=== PATIENT | female | born 1950 | race Caucasian/White ===

== ENCOUNTER 2017-10-05 08:28 | Observation (INO) | payer OTHER ==
[~2017-10-05] VITALS: Ht 160 cm; Wt 101.6 kg
[~2017-10-05 08:28] MED LIST: ALPR0.5T99 PO; HYDR-2768 PO; LISI-363 PO; LORTA5 PO; LOVA1TAB47 PO; ZOFR4TAB3 SL
[2017-10-05] MEDS ORDERED: ALPR.5 PO (09:22)
[2017-10-05] MEDS ORDERED: HYDR25TA5 PO (09:22)
[2017-10-05] MEDS ORDERED: HYDR-3516 PO (09:23)
[2017-10-05] MEDS ORDERED: LISI-515 PO (09:24)
[2017-10-05] MEDS ORDERED: LOVA20TA PO (09:24)
[2017-10-05] MEDS ORDERED: ZOFR4TAB PO (09:25)
[2017-10-05] MEDS ORDERED: PANT40TA3 PO (09:29)
[2017-10-05] MEDS ORDERED: TRAM50TA PO (09:29)
[2017-10-05] MEDS ORDERED: GABA300C5 PO (09:29)
[2017-10-05] MEDS ORDERED: LOSA100T2 PO (09:29)
[2017-10-05] MEDS ORDERED: CLON0.1T PO (09:29)
[2017-10-05] MEDS ORDERED: BACL10TA PO (09:29)
[2017-10-05] MEDS ORDERED: ceFAZolin 2 GM PREMIX 50 ML IV SCH (09:30)
[2017-10-05] MEDS ORDERED: LACTATED RINGER'S 1000 ML IV PRN (09:30)
[2017-10-05] MEDS ORDERED: SODIUM CHLORID 0.9% 500 ML IV PRN (09:30)
[2017-10-05] MEDS ORDERED: CHLORHEXIDINE GLUCONATE 2 % 1 PACK (2 CLOTHS) TOPICAL PRN (09:30)
[2017-10-05] MEDS ORDERED: POVIDONE IODINE 5% (ANTISEPSIS KIT) 4 APPLICATIONS EACH NARE PRN (09:30)
[2017-10-05] MEDS ORDERED: METOPROLOL TARTRATE 25 MG TAB PO PRN (09:30)
[2017-10-05] MEDS ORDERED: HEPARIN SODIUM - SQ 10,000 UNITS/ML VIAL SQ SCH (09:30)
--- NOTE | 2017-10-05 09:37 | RADRPT ---
EXAM DATE/TIME: 10/05/2017 09:01 [place] COMPARISON: No previous studies available for comparison. INDICATIONS : Evaluate for pneumonia, pneumothorax or communible disease Abdomen surgery MEDICAL HISTORY : None. SURGICAL HISTORY : None. ENCOUNTER: Initial ACUITY: 1 day PAIN SCORE: 0/10 LOCATION: Bilateral chest FINDINGS: Minimal linear plaque opacity at the left lung base. Cardiomediastinal contours are within normal bunch its. Bony thorax is intact. CONCLUSION: 1. Minimal left lung base atelectasis. Moshe Arias MD on October 05, 2017 at 9:34 Board Certified Radiologist. This report was verified electronically.
[2017-10-05 10:15] LABS: AUTOMATED NEUTROPHIL # 2.7 TH/MM3 (1.8-7.7); BASOPHIL # 0.1 TH/MM3 (0-0.2); BASOPHIL % 1.3 % (0.0-2.0); EOSINOPHIL # 0.1 TH/MM3 (0-0.4); EOSINOPHIL % 2.6 % (0.0-4.0); HEMATOCRIT 35.8 % (35.0-46.0); HEMOGLOBIN 11.8 GM/DL (11.6-15.3); LYMPH % 31.4 % (9.0-44.0); LYMPHOCYTE # 1.5 TH/MM3 (1.0-4.8); MEAN CELL VOLUME 89.1 FL (80.0-100.0); MEAN CORPUSCULAR HEMOGLOBIN 29.5 PG (27.0-34.0); MEAN PLATELET VOLUME 9.4 FL (7.0-11.0); MONO % 6.6 % (0.0-8.0); MONOCYTE # 0.3 TH/MM3 (0-0.9); NEUT % 58.1 % (16.0-70.0); PLATELET COUNT 163 TH/MM3 (150-450); RED BLOOD COUNT 4.02 MIL/MM3 (4.00-5.30); RED CELL DISTRIBUTION WIDTH 13.5 % (11.6-17.2); WHITE BLOOD COUNT 4.7 TH/MM3 (4.0-11.0)
[2017-10-05 10:22] LABS: INTERNATIONAL NORMALIZED RATIO 1.1 RATIO; PROTHROMBIN TIME - PATIENT 10.8 SEC (9.8-11.6)
[2017-10-05 10:27] LABS: ALBUMIN 3.4 GM/DL (3.4-5.0); ALT (GPT) 22 U/L (10-53); AST (GOT) 20 U/L (15-37); BLOOD UREA NITROGEN 16 MG/DL (7-18); CALCIUM 8.7 MG/DL (8.5-10.1); CHLORIDE 103 MEQ/L (98-107); CREATININE 1.17 MG/DL (0.50-1.00); GLOMERULAR FILTRATION RATE 46 ML/MIN (>89); GLUCOSE,RANDOM 116 MG/DL (74-106); SODIUM (NA) 141 MEQ/L (136-145)
[2017-10-05 10:29] LABS: ALKALINE PHOSPHATASE 94 U/L (45-117); TOTAL BILIRUBIN ADULT 0.7 MG/DL (0.2-1.0)
[2017-10-05] MEDS ORDERED: ACETAMINOPHEN 1000 MG/100 ML 100 ML IV ONE (10:54)
[2017-10-05] MEDS ORDERED: ARTIFICIAL TEARS OPTH OINT 3.5 APPLIC/3.5 GM TUBO ONE (10:54)
[2017-10-05] MEDS ORDERED: SUGAMMADEX SODIUM 200 MG/2 ML VIAL IV PUSH ONE (10:56)
[2017-10-05] MEDS ORDERED: FAMOTIDINE 20 MG/2 ML VIAL ONE (11:12)
[2017-10-05] MEDS ORDERED: BUPIVACAINE/EPINEPHRINE 0.75% PF 30 ML VIAL INFIL ONE (13:29)
[2017-10-05] MEDS ORDERED: METHYLENE BLUE 10 MG/ML VIAL OTHER ONE (14:16)
[2017-10-05] MEDS ORDERED: SODIUM CHLORIDE 0.9% FLUSH 10 ML FLUSH IV FLUSH PRN (15:15)
[2017-10-05] MEDS ORDERED: diphenhydrAMINE HCL 25 MG CAP PO PRN (15:15)
[2017-10-05] MEDS ORDERED: DO NOT ADM ANY ANTICOAGULANT DRUGS PRN (15:26)
[2017-10-05] MEDS ORDERED: MIDAZOLAM HCL 2 MG/2 ML VIAL ONE (15:36)
[2017-10-05] MEDS: KETOROLAC TROMETHAMINE 30 MG/ML (IVP) VIAL IVP SCH ×2 (16:00→22:29)
[2017-10-05] MEDS: D5-1/2 NS + KCL 20 MEQ INJ 1,000 ML IV SCH (16:30)
[2017-10-05] MEDS ORDERED: *morphine SULFATE 8 MG/ML PERIprocedure ONLY ONE (16:45)
[2017-10-05] MEDS ORDERED: *HYDROmorphone PF 1 MG VIAL PERIprocedural Use ONLY ONE ×2 (17:06→17:30)
[2017-10-05] MEDS: oxyCODONE/ACETAMINOPHEN 5 MG/325 MG TAB PO PRN ×2 (17:34→22:36)
[2017-10-05] MEDS: GABAPENTIN 300 MG CAP PO SCH (18:45)
[2017-10-05] MEDS: BACLOFEN 10 MG TAB PO SCH (18:45)
[2017-10-05 20:35] VITALS: BP 103/62; PULSE 68; RESP 16; TEMP 97.6; O2SAT 95
[2017-10-05] MEDS: SODIUM CHLORIDE 0.9% FLUSH 10 ML FLUSH IV FLUSH SCH (20:56)
--- NOTE | 2017-10-05 20:56 | EKG ---
Date Performed: 10/05/2017 Time Performed: 09:16:11 PTAGE: 67 years EKG: SINUS BRADYCARDIA BORDERLINE ECG SINCE PRIOR TRACING NO SIGNIFICANT CHANGE PREVIOUS TRACING : 09/21/2011 14.19 DOCTOR: Shnata Villalobos Interpretating Date/Time 10/05/2017 20:54:48
[2017-10-05] MEDS: cloNIDine HCL 0.1 MG TAB PO SCH (20:57)
[2017-10-05 22:32] VITALS: O2SAT 96
[2017-10-05 22:33] VITALS: BP 116/53
[2017-10-06] VITALS (7 sets, daily range): BP systolic 95–106; BP diastolic 48–59; PULSE 51–86; RESP 16–20; TEMP 96.9–99.2; O2SAT 91–95
[2017-10-06] MEDS: D5-1/2 NS + KCL 20 MEQ INJ 1,000 ML IV SCH ×3 (02:38→22:00)
[2017-10-06] MEDS: KETOROLAC TROMETHAMINE 30 MG/ML (IVP) VIAL IVP SCH ×2 (04:33→10:14)
[2017-10-06 05:56] LABS: AUTOMATED NEUTROPHIL # 9.8 TH/MM3 (1.8-7.7); BASOPHIL % 0.2 % (0.0-2.0); HEMATOCRIT 32.4 % (35.0-46.0); HEMOGLOBIN 11.1 GM/DL (11.6-15.3); LYMPH % 8.4 % (9.0-44.0); MEAN CELL VOLUME 87.6 FL (80.0-100.0); MEAN CORPUSCULAR HEMOGLOBIN 30.1 PG (27.0-34.0); MEAN CORPUSCULAR HGB CONC 34.4 % (32.0-36.0); MEAN PLATELET VOLUME 9.8 FL (7.0-11.0); MONO % 4.9 % (0.0-8.0); MONOCYTE # 0.6 TH/MM3 (0-0.9); NEUT % 86.5 % (16.0-70.0); PLATELET COUNT 182 TH/MM3 (150-450); RED CELL DISTRIBUTION WIDTH 13.1 % (11.6-17.2); WHITE BLOOD COUNT 11.3 TH/MM3 (4.0-11.0)
[2017-10-06] MEDS: oxyCODONE/ACETAMINOPHEN 5 MG/325 MG TAB PO PRN ×2 (05:56→10:14)
[2017-10-06 06:24] LABS: BICARBONATE 28.5 MEQ/L (21.0-32.0); CALCIUM 8.4 MG/DL (8.5-10.1); CREATININE 1.43 MG/DL (0.50-1.00)
[2017-10-06] MEDS ORDERED: TRAM50TA PO (06:35)
[2017-10-06] MEDS: HYDROCHLOROTHIAZIDE 25 MG TAB PO SCH (09:00)
[2017-10-06] MEDS: cloNIDine HCL 0.1 MG TAB PO SCH ×2 (09:00→20:42)
[2017-10-06] MEDS: SODIUM CHLORIDE 0.9% FLUSH 10 ML FLUSH IV FLUSH SCH ×2 (09:00→20:42)
[2017-10-06] MEDS ORDERED: NON-FORMULARY DRUG (Losartan-Hydrochlorothiazide 1 TAB) PO SCH (09:00)
[2017-10-06] MEDS: LOSARTAN 50 MG TAB PO SCH (09:00)
[2017-10-06] MEDS: PANTOPRAZOLE SOD 40 MG DELAYED RELEASE TAB PO SCH (10:14)
[2017-10-06] MEDS: PRAVASTATIN SOD 20 MG TAB PO SCH (10:14)
[2017-10-06] MEDS: GABAPENTIN 300 MG CAP PO SCH ×3 (10:15→20:44)
[2017-10-06] MEDS: BACLOFEN 10 MG TAB PO SCH ×3 (10:15→17:11)
[2017-10-06] MEDS: ONDANSETRON HCL 4 MG/2 ML VIAL IVP PRN ×3 (10:20→19:47)
--- NOTE | 2017-10-06 12:55 | MP ---
cc: MAHSA FONTENOT MD, JULIE D. MD PATEL, KASHYAP M.D. DATE OF SURGERY 10/05/2017 PREOPERATIVE DIAGNOSIS Endometrial polyps with complex atypical hyperplasia. POSTOPERATIVE DIAGNOSIS Endometrial polyps with complex atypical hyperplasia. Intraperitoneal and intrapelvic adhesions. PROCEDURE Robotic-assisted laparoscopic hysterectomy, bilateral salpingo-oophorectomy, extensive lysis of abdominal and pelvic adhesions. SURGEON Mahsa Fontenot. 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 ANESTHESIA General endotracheal. ESTIMATED BLOOD LOSS 100 cc. IV FLUIDS 1000 cc. URINE OUTPUT 200 cc. HISTORY A 67-year-old female who in part of her evaluation for some pelvic pain and urinary symptomatology had a pelvic ultrasound which showed a thickening to the endometrium. She underwent a hysteroscopy and D&C where there are polypoid growths, especially one prominent polyp in the endometrium. The remainder of the endometrium appeared atrophic. This polyp was removed. This polyp showed complex atypical hyperplasia. She was seen in our office and counseled regarding the potential precancerous nature of complex atypical hyperplasia and often the coexistence of endometrial cancer. We discussed options ranging from clinical follow-up to progesterones to more definitive surgery with hysterectomy. Initially she was apprehensive about surgery and requested more time to think about her options. Shortly thereafter she contacted our office and stated that she was worried about the possibility of cancer being present or cancer developing, and although she was apprehensive about surgery she was more apprehensive about the possibility of cancer and wanted to move forward with surgery. She has been counseled by my office staff in addition to myself and she is seen again in the pre-op holding area accompanied by her . I again reviewed the findings in her case to date, the plan for hysterectomy to remove uterus, cervix, tubes and ovaries, our goal to accomplish the surgery laparoscopically robotically and the potential need to convert to laparotomy. We also discussed the potential need for staging biopsies if cancer is present with high risk factors and there is concern about possible microscopic metastatic disease. The pros, cons, risks and benefits of surgery, anesthesia and staging steps were discussed. She expressed good understanding and agreed to move forward. FINDINGS On vaginal exam there is a very narrow stricture in an arc-line fashion across the proximal ventral vagina. There is scarring there suggestive of possibly a transvaginal repair procedure of some type or possibly old obstetric injury. When we obtained her history from her in the office we were not made aware of a vaginal procedure. Nevertheless this is noted on exam but otherwise the vaginal mucosa appears smooth, it just makes for a narrow vaginal outlet. A well-supported cervix grossly appears normal. In the abdomen the omentum is adherent to the central and left lateral abdominal wall pain consistent with probable prior cholecystectomy, appendectomy procedures. In the pelvis both adnexa are densely adherent to the pelvic sidewall, partially retroperitonealized. The colon is overlying the left adnexa such that the adnexa is scarred between the colon and sidewall and there is some obliteration of the posterior cul-de-sac. In the peritoneum there is no obvious peritoneal implant. The liver and diaphragm edges are smooth. The omentum, large and small bowel are without implants. There are some diverticula noted without active diverticulitis. The uterus once removed showed no overt evidence of invasive disease. There is some abnormality that may meet the criteria for atypical hyperplasia. There is no obvious malignancy, certainly no invasion on preliminary inspection. STATEMENT OF COMPLEXITY/MODIFIER An estimated additional 45-60 minutes of the surgical case were required lysing adhesions, both to reduce the abdominal adhesions to gain safe entry into the peritoneal cavity and immobilize pelvic adhesions to restore normal anatomy to gain access to the pelvis and accomplish surgical objectives. Modifier should be applied accordingly. Additionally, her body habitus with a body mass index of 40.5. DETAILS OF PROCEDURE She was taken to the operating room, placed in the dorsal lithotomy position. After general endotracheal anesthesia was administered a timeout was undertaken. She was identified by hospital ID bracelet and sight recognition and the proposed procedure was reviewed and confirmed. She was carefully positioned in padded Rajan stirrups. Her arms were padded and secured to the sides. She was further secured to the operating table with eggcrate padding and tape in across chest over the shoulder fashion. All sites were noted to be properly aligned with no malalignments or pressure points. She was prepped and draped in sterile fashion, placed in lithotomy position. Pelvic exam was performed with findings as described above. The cervix was grasped, uterine cavity was sounded, cervix dilated and a small VCare manipulator was all that could be placed in the vagina through the narrow opening but placed without significant difficulty. A Garcia catheter was placed in the bladder. She was returned to low lithotomy position. A change of sterile gloves was undertaken and we completed draping in anticipation of laparoscopy. After confirming that an orogastric tube was in the stomach on suction a 5 mm cannula was placed in the left upper quadrant. With elevation of the abdominal wall and direct laparoscopic visualization carbon dioxide gas was insufflated. There was no safe entry in the mid abdomen due to the adhesions so an 8 mm cannula was placed in the left lateral abdomen and adhesions were taken down with sharp dissection, blunt dissection and focal point cautery to remove the omentum from the anterior abdominal wall. At this point a 12 mm cannula was placed in the midline above the umbilicus, an 8 mm cannula was placed in the right upper quadrant, and the original 5 exchanged for an 8 mm cannula. She was placed in Trendelenburg position. Peritoneal washings were obtained for cytology. The anatomy was explored with findings as described above. Three Ray-Frederick sponges were placed around the root of the small bowel mesentery after the small bowel was folded back on its mesenteric root. The robotic system was brought into the operative field and attached in the usual fashion. Monopolar scissors, fenestrated bipolar forceps and ProGrasp manipulators were placed in arms #1, 2 and 3 respectively and I took my place at the surgeon's console. Additional adhesions were taken down to free the adnexa from its attachments to the right pelvic sidewall and the posterior cul-de-sac and to mobilize the bowel and mesentery away from the sidewall. The right round ligament was isolated, cauterized and transected. The anterior and posterior leafs of the broad ligament were opened. The right ureter was identified. The right infundibulopelvic ligament was isolated as the intervening peritoneum was opened close to the uterus under the right utero-ovarian ligament. Dissection was carried proximally to isolate the gonadal vessels above the pelvic brim. The right infundibulopelvic ligament was then cauterized and transected. The posterior peritoneum was opened along the right side of the uterus and cervix as additional adhesions were taken down to open the posterior cul-de-sac and the right vesicouterine peritoneum was dissected off the lower uterine segment and cervix. The right uterine vessels were skeletonized and cauterized. Attention was directed toward the left side where retroperitoneal dissection was necessary to mobilize the colon. Sharp dissection was used to free the colon from its attachments to the left pelvic sidewall and the adnexal structures and to free adhesions from the cul-de-sac until the retroperitoneal anatomy could be better identified. The left round ligament was isolated, cauterized and transected and the left ureter was identified. The left infundibulopelvic limb was isolated. An opening was made in the peritoneum in close proximity to the uterus below the utero-ovarian ligament. Dissection was continued proximally elevating the gonadal vessels and dissected the infundibulopelvic ligament free above the level of the pelvic brim where it was cauterized and transected. The posterior peritoneum was opened along the left side of the uterus and cervix. The left vesicouterine peritoneum was dissected off the lower uterine segment and cervix and the left uterine vessels were cauterized. The uterus was completely blanched as the major blood supply had now been disrupted and left uterine vessels were transected. The cardinal, paracervical and uterosacral ligaments were isolated, cauterized and transected in a stepwise fashion thereby freeing the attachments along the left side of the uterus and cervix. Attention was redirected to the right side where the uterine vessels were now transected. The cardinal, paracervical and uterosacral ligaments were isolated, cauterized and transected in a stepwise fashion thereby freeing the attachments along the right side of the uterus and cervix. Circumferential colpotomy was performed following the cap of the VCare manipulator the cervix from the upper vagina. Due to the narrow pelvic outlet I left the surgeon's console to help facilitate delivery of the specimen transvaginally. With additional lubrication of the vagina, countertraction with tenaculums and slow position changings, the specimen was able to be delivered without injury to the vaginal mucosa, and it was sent for pathology with findings as described above. I returned to the surgeon's console. 0 Vicryl suture was introduced as needle drivers were placed in instrument arms 1 and 3. The vaginal cuff was closed starting at the left corner where full-thickness closure through the mucosa including the posterior peritoneum and uterosacral ligament and tied via instrument tie. The closure was held on countertraction as a running full-thickness continuous closure was carried across the vaginal apex to the contralateral corner where it was similarly fixed, secured and tied, and the needle was cut and removed. The integrity of the bladder was confirmed by filling the bladder with saline dyed with methylene blue. The bladder distended nicely under pressure. There were no thinning areas of the bladder, no extravasation of dye, good peristalsis of ureters bilaterally and a good margin between the edge of the bladder and the vaginal cuff suture line, and the bladder was drained. The pelvis was thoroughly irrigated. Small bleeders were rendered hemostatic with bipolar cautery. Hemostatic Surgicel powder was placed across the vaginal cuff and the lateral pelvic sidewalls. Pathology came back showing no evidence of malignancy, no invasive disease. It was felt that all reasonable surgical objectives had been completed. The robotic instruments were removed. The robotic system was disengaged from the operative field. I re-entered the bedside under sterile conditions. The 12 mm fascial defect was closed with 0 Vicryl suture using the needle pass fascial closure apparatus. They were tied securely which rendered the fascia completely airtight and hemostatic. It is noted that each of three Ray-Frederick sponges that were placed in the peritoneal cavity were removed laparoscopically prior to closing the 12 mm fascial defect. Each were removed and inspected and noted to be removed in their entirety. Visualization of the peritoneal cavity revealed no remaining foreign objects in the peritoneum and preliminary counts were correct. The remaining cannulas were withdrawn. Carbon dioxide gas was removed from the peritoneal cavity. 3-0 Vicryl subcutaneous, 3-0 Vicryl subcuticular and Steri-Strips were used to close the skin incisions. She was turned to dorsal lithotomy position. Pelvic exam confirmed the vaginal cuff was well-secured and hemostatic. There were no vaginal lacerations, no mucosal tears, no remaining foreign objects in the vagina and final counts were correct. She was returned to dorsal supine position and pending reversal of anesthesia when I left the operating room to precede her to the post-anesthesia care unit. MD HOSSEIN Nolan /3:49 PM /12:16 PM KELLI
[2017-10-06] MEDS: LORazepam 0.5 MG TAB PO PRN (14:29)
--- NOTE | 2017-10-06 15:36 | HHI.PR ---
Addendum to Inpatient Note Addendum Reason: Additional Documentation Additional Information She is seen again this afternoon. She c/o nausea with dry heaves/emesis, unable to eat and with minimal liquid intake Low UOP with earlier bladder scan of only ~67cc. Just now voided small amount. anxious, nauseated, uncomfortable but in no distress. o/w no change in exam. A/P Not meeting criteria for discharge to home today cpm, ivf, antiemetics, ongoing assessment and treatment of pain, anxiety re-evaluate for discharge tomorrow Adali Fontenot MD Oct 06, 2017 15:36
[2017-10-07] VITALS (7 sets, daily range): BP systolic 120–127; BP diastolic 65–68; PULSE 55–83; RESP 16–18; TEMP 98.6–99.1; O2SAT 91–96
[2017-10-07] MEDS: D5-1/2 NS + KCL 20 MEQ INJ 1,000 ML IV SCH (01:21)
[2017-10-07] MEDS: oxyCODONE/ACETAMINOPHEN 5 MG/325 MG TAB PO PRN ×3 (01:39→15:51)
--- NOTE | 2017-10-07 07:49 | HHI.PR ---
Subjective . no new c/o, stomach settled down, no n/v, tolerating oral intake, has been out of bed Objective . afeb vss uop 2200 a&o x 3 cta rrr soft nt clean & dry Assessment/Plan . pod#2 clinical improvement d/c to home f/u 2 weeks Adali Fontenot MD Oct 07, 2017 07:49
[2017-10-07] MEDS: cloNIDine HCL 0.1 MG TAB PO SCH (09:00)
[2017-10-07] MEDS: LOSARTAN 50 MG TAB PO SCH (09:00)
[2017-10-07] MEDS: SODIUM CHLORIDE 0.9% FLUSH 10 ML FLUSH IV FLUSH SCH (09:00)
[2017-10-07] MEDS: ONDANSETRON ODT 4 MG TAB PO PRN ×2 (09:29→13:53)
[2017-10-07] MEDS: PRAVASTATIN SOD 20 MG TAB PO SCH (09:30)
[2017-10-07] MEDS: GABAPENTIN 300 MG CAP PO SCH (09:30)
[2017-10-07] MEDS: PANTOPRAZOLE SOD 40 MG DELAYED RELEASE TAB PO SCH (09:30)
[2017-10-07] MEDS: HYDROCHLOROTHIAZIDE 25 MG TAB PO SCH (09:30)
[2017-10-07] MEDS: BACLOFEN 10 MG TAB PO SCH ×2 (09:30→11:52)
[2017-10-07] MEDS: LORazepam 0.5 MG TAB PO PRN (13:53)
--- NOTE | 2017-10-08 19:37 | MD ---
cc: MAHSA BAEZ MD ADMISSION DATE: 10/05/2017 DISCHARGE DATE: 10/07/2017 PROCEDURE: 08/05/2018, robotic-assisted laparoscopic hysterectomy, bilateral salpingo-oophorectomy, extensive lysis of adhesions. DIAGNOSIS: 1. Endometrial cancer. 2. Pelvic adhesions. 3. Abdominal adhesions. HOSPITAL COURSE: She did do well in early postop period, hemodynamically stable, remains somewhat somnolent from anesthesia, but significant improvement since seeing her yesterday in the post-anesthesia care unit. She reports feeling more like her baseline self. OBJECTIVE: Ins and outs: 2450/1500. Labs showed H&H this morning of 11.1 and 32.4. Electrolytes - potassium 3.5, BUN and creatinine 18 and 1.43 (baseline creatinine was elevated at 1.17) PHYSICAL EXAMINATION: Somnolent but awake, oriented, afebrile, pulse of 68-86, respirations 16, blood pressure 96-106/48-62, O2 saturations greater than or equal to 95% while awake and 93% while asleep, lungs are clear at the apices with mild rales at the bases. Cardiovascular - regular rate rhythm. Abdomen soft, nondistended. The incisions are clean and dry. 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 Extremities nontender. ASSESSMENT: Postoperative day #1 doing reasonably well in early postop. Still a bit somnolent from the anesthesia effect but improving. FINDINGS AT SURGERY: Preliminary pathology reviewed, activities and restrictions discussed. Questions were answered. She expressed good understanding. PLAN: I believe she will probably be ready for discharge to home today and we will see how she further improves this morning. She is to contact our office to schedule follow up within two weeks. She is aware of her underlying medical issues and baseline elevated creatinine increased a bit further today likely due to fluid shifts from bowel prep, NPO and surgical fluid changes. The importance of hydration and drinking is emphasized. She is to resume prior medications. She will have a prescription for tramadol if she needs it for pain, otherwise, [id number] medications that are deemed acceptable by her other caregivers. She is to contact our office should she have any questions or problems between now and the time of scheduled followup. It has also been recommended that we repeat her blood work in a few days to reassess her electrolyte status. She has been as to call our office to ensure that that is scheduled, but I will ask my office to schedule follow up labs as an outpatient. MD DOM Nolan/ASUNCION /6:34 AM /7:25 PM
== END 2017-10-07 16:09 | disposition home or self-care (01) ==
LOC: HSDC 08:28 → HCIN 20:10
PROVIDERS: ADMIT Obstetrics & Gynecology Gynecologic Oncology; ATTEND Obstetrics & Gynecology Gynecologic Oncology
DX: N84.0 Polyp of corpus uteri (principal); C54.1 Malignant neoplasm of endometrium; N73.6 Female pelvic peritoneal adhesions (postinfective); R00.1 Bradycardia, unspecified
CPT/HCPCS: 00840; 58552; 71045; 80048; 80053; 85025; 85610; 85730; 86850; 86900; 86901; 88112; 88309; 88331; 93005; 94150; 96365; 96366; 96375; 96376; C1769; G0378; J0131; J0690; J1170; J1644; J1885; J2250; J2270; J2405; J3010; J3480; J7120; 88307